=== PATIENT | male | born 1935 | race Caucasian/White ===

== ENCOUNTER 2021-02-06 06:07 | Day surgery (SDC) | payer OTHER ==
[~2021-02-06 06:07] MED LIST: AMLODIPINE-OLM1 EAC3; ATORVASTATIN CA20 MG; CARVEDILOL PO; CILOSTAZOL100 MG; CLONAZEPAM1 M1; DIOVAN40 MG; GABAPENTIN PO; GLUMETZA500 MG; MIRAPEX0.25 MG; PLAVIX75 MG; PRAMIPEXOLE PO; TAMS0.4C; TIROSINT88 MCG
== END 2021-02-06 17:00 | disposition home or self-care (01) ==
LOC: CIR.AMB 06:07
PROVIDERS: ATTEND Specialist
DX: C83.38 Diffuse large B-cell lymphoma, lymph nodes of multiple sites (principal); Z20.822 Contact with and (suspected) exposure to COVID-19
CPT/HCPCS: 36561; C1751